=== PATIENT | female | born 1935 | race Caucasian/White ===

== ENCOUNTER 2016-06-17 07:58 | Emergency (ER) | payer MEDICARE, OTHER ==
[~2016-06-17 07:58] MED LIST: ACET500CAP PO; ADVIL PO; ARIMIDEX1 PO; ASA5GR PO; ASAB PO; CALTRA600D PO; CENTRUM TAB1 TAB PO; CORDARONE PO; CRESTOR10 PO; CRESTOR20 MG PO; DIOVAN HC2 PO; DIOVAN HCT320 MG/25; DIOVAN HCT320 MG/25 PO; DIOVAN320 MG PO; DSS PO; FERROUS SULFATE PO; FOSAMAX70 MG PO; HALF81 PO; IRON; JANTOVEN1 MG PO; JANTOVEN2.5 MG PO; JANTOVEN4 MG PO; KDUR10 PO; KLOR-CON M2020 MEQ PO; LOP25 PO; METHOC750B PO; MIRALAXPKT PO; MULTIPLE VIT PO; MULTIVIT/MIN PO; NORCO1 TA1 PO; NORV5 PO; NTG150 SL; PACERONE100 MG PO; PACERONE200 MG PO; PLAVIX PO; PRILO PO; PROBIOTIC; TRAMADOL; TRIAMTERENE HCTZ PO; TRIPLE FLEX PO; ULTRAM50 PO; VITAMIN D31000 UNIT PO; VITC500 PO; ZANTAC 150 PO; ZANTAC PO; ZOCOR20 PO; ZOFRAN4 PO; [UNRECOGNIZED DRUG - OTHER] OR
[2016-06-17 08:26] LABS: BASOPHILS 0 %; EOSINOPHILS 0 %; HEMATOCRIT 39.8 % (36.0-48.0); HEMOGLOBIN 13.5 g/dL (12.0-16.0); IMMATURE GRANULOCYTES 0.2 %; IMMATURE GRANULOCYTES ABSOLUTE 0.01 10/3/uL (0.0-0.11); LYMPHOCYTES 8.7 %; LYMPHOCYTES ABSOLUTE 0.54 10/3/uL (0.67-4.30); MEAN CORPUS HGB CONC 33.9 g/dL (32.0-36.0); MEAN CORPUSCULAR HEMOGLOB 31.5 pg (26.0-34.0); MEAN PLATELET VOLUME 11.6 fL (9.2-13.0); MONOCYTES 10.5 %; MONOCYTES ABSOLUTE 0.65 10/3/uL (0.21-1.20); NEUTROPHILS 80.6 %; PLATELET COUNT 147 10/3/uL (150-400); RBC DISTRIBUTION WIDTH 14.8 % (12.0-16.0); RED CELL COUNT 4.28 10/6/uL (4.0-5.6); WHITE BLOOD CELLS 6.2 10/3/uL (4.5-10.5)
[2016-06-17 08:27] LABS: MANUAL DIFF NO %
[2016-06-17 08:31] LABS: ASCORBIC ACID (UR NOT ORDER) NEG (NEG); BILIRUBIN, URINE NEGATIVE (NEG); ER URINALYSIS TAT 0 Hrs 14 Mins; KETONE, URINE TRACE MG/DL (NEG); LEUKOCYTE ESTERASE(NOT OR NEG (NEG); NITRITE (URINE) NEG (NEG); WBC (NOT ORDERED) (RFLEX) < 1 (0-5)
[2016-06-17 08:47] LABS: A/G RATIO 1.1 (0.7-1.9); ALBUMIN 3.9 G/DL (3.5-5.0); ALKALINE PHOSPHATASE 188 U/L (45-117); BUN (BLOOD UREA NITROGEN) 16 MG/DL (6-23); CALCIUM, SERUM 8.5 MG/DL (8.5-10.4); CHLORIDE, SERUM 101 MMOL/L (96-112); CO2 (CARBON DIOXIDE) 31 MMOL/L (24-34); CREATININE 0.83 MG/DL (0.55-1.02); GFR AFRICAN AMERICAN 76 ML/MIN (>=60); GFR NON AFRICAN AMERICAN 65 ML/MIN (>=60); GLOBULIN 3.5 G/DL (2.5-4.1); GLUCOSE, SERUM 148 MG/DL (60-99); POTASSIUM, SERUM 3.3 MMOL/L (3.5-5.3); SGOT(AST) 282 U/L (5-40); SGPT(ALT) 164 U/L (5-65); SODIUM, SERUM 138 MMOL/L (135-148); TOTAL BILIRUBIN 0.9 MG/DL (0-1.2); TOTAL PROTEIN 7.4 G/DL (6.0-8.5); TROPONIN I <0.02 NG/ML (<0.05)
== END 2016-06-17 10:49 | disposition home or self-care (01) ==
LOC: ER 07:58
PROVIDERS: Emergency Medicine
DX: E87.6 Hypokalemia (principal); R94.5 Abnormal results of liver function studies; R11.2 Nausea with vomiting, unspecified; I10 Essential (primary) hypertension; I48.91 Unspecified atrial fibrillation; K21.9 Gastro-esophageal reflux disease without esophagitis; D64.9 Anemia, unspecified; Z95.5 Presence of coronary angioplasty implant and graft; Z85.3 Personal history of malignant neoplasm of breast; Z88.5 Allergy status to narcotic agent; Z79.82 Long term (current) use of aspirin; Z79.899 Other long term (current) drug therapy
CPT/HCPCS: 80053; 81001; 83690; 84484; 85025; 93005; 96374; 99284; J2405